=== PATIENT | female | born 1995 | race Caucasian/White ===

== ENCOUNTER 2019-09-23 22:48 | Emergency (ER) | payer SELFPAY ==
[~2019-09-23] VITALS: Ht 167.6 cm; Wt 61.0 kg
[2019-09-24 00:23] LABS: BASOPHILS % 0.4 % (0.0-2.0); EOSINOPHILS % 1.8 % (0.0-5.0); HEMATOCRIT. 36.4 % (36.0-48.0); HEMOGLOBIN. 12.3 g/dL (12.0-16.0); MEAN CORPUSCULAR HEMOGLOBIN 29.4 pg (28.0-32.0); MEAN CORPUSCULAR VOLUME 87.3 fL (81.0-99.0); MEAN PLATELET VOLUME 8.4 fl (7.4-10.4); MONOCYTES % 5.1 % (2.0-8.0); NEUTROPHILS % 70.7 % (40.0-76.0); PLATELET 242 x1000/uL (130-400); RED BLOOD CELL COUNT 4.17 mill/uL (4.2-5.4)
[2019-09-24 00:26] LABS: CHLORIDE 111 mEq/L (98-107)
[2019-09-24 00:30] LABS: CLARITY URINE CLEAR (CLEAR); COLOR URINE YELLOW (YELLOW); KETONES URINE NEGATIVE (NEGATIVE); LEUKOCYTE ESTERASE URINE 1+ (NEGATIVE); NITRITE URINE NEGATIVE (NEGATIVE); OCCULT BLOOD URINE NEGATIVE (NEGATIVE); PH URINE 7.5 (4.5-8.0); PROTEIN URINE NEGATIVE (NEGATIVE)
[2019-09-24 00:32] LABS: ETHANOL BLOOD < 10 mg/dL
[2019-09-24 00:36] LABS: CREATINE KINASE 256 IU/L (26-192)
[2019-09-24 00:45] LABS: PROTHROMBIN TIME 10.2 sec (9.6-11.0)
[2019-09-24 01:05] LABS: *AMPHETAMINES SCREEN URINE NEGATIVE (NEGATIVE); *BARBITURATES SCREEN URINE NEGATIVE (NEGATIVE); *BENZODIAZEPINES SCREEN URINE NEGATIVE (NEGATIVE); *COCAINE SCREEN URINE NEGATIVE (NEGATIVE)
[2019-09-24 01:06] LABS: CANNABINOID URINE SCREEN NEGATIVE (NEGATIVE); METHADONE URINE SCREEN NEGATIVE (NEGATIVE); OPIATES URINE SCREEN NEGATIVE (NEGATIVE); PHENCYCLIDINE URINE SCREEN NEGATIVE (NEGATIVE)
[2019-09-24] MEDS ORDERED: GADOBENATE DIMEGLUMINE 529 MG/ML 10ML IV ONE (01:24)
[2019-09-24 02:15] VITALS: BP 115/75
== END 2019-09-24 02:25 | disposition home or self-care (01) ==
LOC: ER 22:48
DX: R55 Syncope and collapse (principal); R53.1 Weakness; F19.21 Other psychoactive substance dependence, in remission; F31.9 Bipolar disorder, unspecified
CPT/HCPCS: 36415; 70450; 71045; 72157; 72158; 80053; 80305; 80320; 81003; 81025; 82550; 83605; 84145; 85025; 85610; 87040; 87086; 93005; 99285; A9577; G0480